=== PATIENT | male | born 1950 | race Caucasian/White ===

== ENCOUNTER 2019-08-02 10:38 | Inpatient (IN) | payer OTHER, MEDICAID ==
[~2019-08-02] VITALS: Ht 180.3 cm; Wt 94.4 kg
[2019-08-02 11:47] LABS: Basophils # (auto) 0.1 uL; Basophils % (auto) 0.7 % (0.0-2.0); Eosinophils # (auto) 0.2 uL; Eosinophils % (auto) 1.4 % (0.0-7.0); Hematocrit 46.2 % (41.0-53.0); Lymphocytes # (auto) 1.7 uL; Lymphocytes % (auto) 13.7 % (10.0-50.0); Mean Corpuscular Hgb Conc. 32.5 g/dL (32.0-36.0); Mean Corpuscular Volume 92.3 fL (80.0-100.0); Monocytes # (auto) 1.1 uL; Monocytes % (auto) 8.8 % (0.0-12.0); Neutrophils # (auto) 9.6 uL; Neutrophils % (auto) 75.4 % (37.0-80.0); Platelet Count (auto) 219 10^3/uL (140-450); Red Cell Distribution Width 14.4 % (11.8-14.3); White Blood Cell 12.7 10^3/uL (4.4-10.8)
[2019-08-02 12:15] LABS: Albumin 3.6 g/dL (3.4-5.0); Calcium 8.4 mg/dL (8.5-10.1); Potassium 4.3 mmol/L (3.5-5.1)
[2019-08-02 12:21] LABS: Bilirubin, Total 0.4 mg/dL (0.2-1.0); Total Protein 7.2 g/dL (6.4-8.2)
[2019-08-02] MEDS ORDERED: MORPHINE SULF INJ 2 MG/ML SYRINGE 1ML IV PRN ×2 (14:45)
[2019-08-02] MEDS ORDERED: ASPirin-EC 81 mg tab PO ONE (14:45)
[2019-08-02] MEDS ORDERED: NITROGLYCERIN 0.4 MG SL TAB SL PRN (14:45)
[2019-08-02] MEDS ORDERED: ONDANSETRON HCL 4 MG/2 ML VIAL IV PRN (14:45)
[2019-08-02] MEDS ORDERED: ACETAMINOPHEN 500 MG TAB PO PRN (14:45)
[2019-08-02 15:05] LABS: Urine Bacteria NONE SEEN /hpf (None Seen); Urine Blood Negative /uL (Negative); Urine Specific Gravity 1.011 (1.001-1.035); Urine WBC 1 /hpf (0 - 3)
[2019-08-02 15:09] LABS: Cholesterol 132 mg/dL (< 200); Triglycerides 177 mg/dL (< 150)
[2019-08-02 15:10] LABS: HDL Cholesterol 32 mg/dL (40-59); LDL Cholesterol 82 mg/dL (< 100)
[2019-08-02 15:20] LABS: Alcohol, Urine < 3.0 mg/dL (0-5); Amphetamine Screen, Urine NEGATIVE (NEGATIVE); Barbiturate Scree,Urine NEGATIVE (NEGATIVE); Benzodiazephine Screen, Urine POSITIVE (NEGATIVE); Cannabinoid Screen, Urine NEGATIVE (NEGATIVE); Cocaine Screen, Urine NEGATIVE (NEGATIVE)
[2019-08-02 15:27] LABS: Opiate Scree,Urine POSITIVE (NEGATIVE); Phencyclidine Screen, Urine NEGATIVE (NEGATIVE)
--- NOTE | 2019-08-02 17:53 | NUR ---
Telemetry admit from ER [facility] admitted to Telemetry unit after SBAR received. Patient oriented to Margie Doherty primary RN and NEFTALI Orozco, unit, room, bed, and unit policies regarding patient care and visiting hours. Patient now on continuous telemetry monitoring, tele box #29 and telemetry reading on arrival to unit is SR 80 bpm. Patient placed on bedside oxygen, weighed by bed scale and encouraged to call if they need something. All questions and concerns addressed, patient verbalized understanding. Instructed patient on POC, fall precautions and to call for assistance as needed. Patient verbalized understanding. Fall precautions in place with bed in lowest locked position with x2 side rails up and call light within reach. Will continue to monitor q1hr & PRN. No facial drooping noted. Extremity strength is equal with no weakness noted. Patient's speech is clear with no slurring noted.
[2019-08-02] MEDS ORDERED: ATOR20TA50 PO (18:58)
[2019-08-02] MEDS ORDERED: ACET300T2 PO (18:58)
--- NOTE | 2019-08-02 19:05 | NUR ---
Closing note patient resting in bed with even and unlabored respirations, no distress noted. Fall precautions in place with bed in lowest locked position, call light within reach.
--- NOTE | 2019-08-02 19:30 | NUR ---
Opening Shift Note Assumed care of patient, awake and alert. No S/S of distress/SOB or pain. Instructed on POC and to call for assist PRN. Bed in lowest locked position, call light within reach, side rails up x2, fall precautions in place. Will continue to monitor for changes Q1hr and PRN.
[2019-08-02] MEDS: ATORVASTATIN 20 MG TAB PO SCH (21:55)
[2019-08-02 22:00] VITALS: BP 137/74
[2019-08-03 05:00] VITALS: BP 118/72
[2019-08-03 06:34] LABS: Basophils # (auto) 0.1 uL; Basophils % (auto) 0.8 % (0.0-2.0); Eosinophils # (auto) 0.3 uL; Hematocrit 44.4 % (41.0-53.0); Hemoglobin 14.9 g/dL (13.5-17.5); Lymphocytes # (auto) 1.7 uL; Lymphocytes % (auto) 19.6 % (10.0-50.0); Mean Corpuscular Hemoglobin 30.5 pg (28.0-32.0); Mean Corpuscular Hgb Conc. 33.5 g/dL (32.0-36.0); Mean Corpuscular Volume 90.9 fL (80.0-100.0); Monocytes % (auto) 12.2 % (0.0-12.0); Neutrophils # (auto) 5.5 uL; Neutrophils % (auto) 64.4 % (37.0-80.0); Platelet Count (auto) 189 10^3/uL (140-450); Red Blood Cells 4.89 10^6/uL (4.5-5.90); Red Cell Distribution Width 14.4 % (11.8-14.3); White Blood Cell 8.5 10^3/uL (4.4-10.8)
[2019-08-03 06:51] LABS: BUN/Creatinine Ratio 13.4; Calcium 8.6 mg/dL (8.5-10.1); Potassium 4.1 mmol/L (3.5-5.1)
[2019-08-03 08:45] VITALS: BP 134/76
[2019-08-03] MEDS: ASPirin-EC 81 mg tab PO SCH (09:23)
[2019-08-03] MEDS: FAMOTIDINE 20 MG TAB PO SCH (09:23)
[2019-08-03 13:00] VITALS: BP 136/83
[2019-08-03] MEDS ORDERED: cefTRIAXone 1GM/50ML D5W 50 ML IV ONE (13:00)
[2019-08-03 17:00] VITALS: BP 114/69
[2019-08-03] MEDS: ATORVASTATIN 20 MG TAB PO SCH (21:57)
[2019-08-03 22:00] VITALS: BP 141/71
[2019-08-04 05:41] VITALS: BP 124/69
--- NOTE | 2019-08-04 07:30 | NUR ---
Opening Shift Note Assumed care of patient, awake and alert x2. No S/S of distress/SOB or pain. Instructed on POC and to call for assist PRN. Bed in lowest locked position, call light within reach, side rails up x2, fall precautions in place. Will continue to monitor for changes Q1hr and PRN.
[2019-08-04 08:53] LABS: Folate (Folic Acid) 17.77 ng/mL (5.38-24)
--- NOTE | 2019-08-04 08:53 | NUR ---
ROUNDING MD Haresh RASHID AT BEDSIDE. ALL QUESTIONS AND CONCERNS ADDRESSED AT THIS TIME.
[2019-08-04 09:00] VITALS: BP 120/77
[2019-08-04] MEDS: ASPirin-EC 81 mg tab PO SCH (09:04)
[2019-08-04] MEDS: cefTRIAXone 1GM/50ML D5W 50 ML IV SCH (09:04)
[2019-08-04] MEDS: FAMOTIDINE 20 MG TAB PO SCH (09:05)
[2019-08-04 13:00] VITALS: BP 139/89
--- NOTE | 2019-08-04 15:30 | NUR ---
NAT INSTRUCTOR AT BEDSIDE.
--- NOTE | 2019-08-04 15:31 | NUR ---
EEG- Electroencephalogram completed on 08/04/2019.
[2019-08-04 16:50] VITALS: BP 155/88
--- NOTE | 2019-08-04 19:10 | NUR ---
Opening Shift Note Assumed care of patient, awake and alert. No S/S of distress/SOB or pain. Instructed on POC and to call for assist PRN, will continue to monitor for changes Q1hr and PRN. Side rails up x2. Bed locked in lowest position. Call light within reach.
[2019-08-04] MEDS: HYDROcodone-ACET 5/325MG TAB PO PRN (19:52)
[2019-08-04] MEDS: ATORVASTATIN 20 MG TAB PO SCH (21:05)
[2019-08-04 22:00] VITALS: BP 125/87
--- NOTE | 2019-08-05 02:22 | NUR ---
Rounds Patient in bed asleep with no signs of distress/sob/pain. Will continue to monitor Q1HPRN.
[2019-08-05 05:20] VITALS: BP 153/77
--- NOTE | 2019-08-05 07:05 | NUR ---
Endorsed care to skinny LINDSAY.
--- NOTE | 2019-08-05 07:17 | NUR ---
Opening Shift Note Assumed care of patient, awake and alert x2. No S/S of distress/SOB or pain. Instructed on POC and to call for assist PRN. Family at bedside. Bed in lowest locked position, call light within reach, side rails up x2, fall precautions in place. Will continue to monitor for changes Q1hr and PRN.
[2019-08-05 09:00] VITALS: BP 138/76
[2019-08-05] MEDS: cefTRIAXone 1GM/50ML D5W 50 ML IV SCH (09:00)
[2019-08-05] MEDS: ASPirin-EC 81 mg tab PO SCH (09:01)
[2019-08-05] MEDS: FAMOTIDINE 20 MG TAB PO SCH (09:01)
--- NOTE | 2019-08-05 10:01 | NUR ---
ROUNDING MD Haresh RASHID AT BEDSIDE. ALL QUESTIONS AND CONCERNS ADDRESSED AT THIS TIME.
--- NOTE | 2019-08-05 10:23 | NUR ---
PAGED DIRECTOR PATIENT RE: ECHO RESULTS. ACCORDING TO DIRECTOR PATIENT MARIBELL THE RESULTS STILL NEED TO BE READ BY MD. DIAS
--- NOTE | 2019-08-05 10:32 | NUR ---
CALLED [facility] FOR EEG RESULTS. ACCORDING TO BICYCLE FITTER THE RESULTS STILL NEED TO BE READ BY DR NIETO.
--- NOTE | 2019-08-05 12:11 | NUR ---
Nutrition Assessment Notes please see attached link for complete assessment Est. Needs BW 95 [id number] kcal (23-25 kcal/kgBW), 95-104 gms pro (1.0-1.1 gms/kgBW). Will continue to monitor pertinent labs and reassess nutrient need prn Addendum: 08/05/19 at [address] Amended: Links added.
[2019-08-05 13:00] VITALS: BP 139/86
--- NOTE | 2019-08-05 15:46 | NUR ---
assessment Patient is a 69 year old male who is alert and oriented. Patients cognitive abilities are intact. Prior to admission patient lived home with his sig other and functioned independently. Patient informed me he is able to care for his own ADLs. Per patient he will return home to his prior living arrangements post discharge and family will transport him home. Patient was admitted for CVA and it has been ruled out. At this time patient has no post discharge needs at this time. Patient informed me he feels safe returning home on discharge. I informed patient he has a right to speak to a social work program coordinator regarding all care. I informed patient he has a right to participate in any and all discharge planning. Patient does not have a POA and advanced directive. I have offered patient information on POA and advanced directives. I informed the patient the advantages and benefits of having an Advanced Directive. Patient verbalized understanding and agreed to discharge plan. Addendum: 08/05/19 at 1552 by Denisha CHARLES Amended: Links added.
[2019-08-05 17:00] VITALS: BP 146/88
[2019-08-05] MEDS: HYDROcodone-ACET 5/325MG TAB PO PRN (17:54)
--- NOTE | 2019-08-05 20:20 | NUR ---
RECEIVE BED AWAKE ALERT STATES HE MAY BE DICHARGED TOMORROW
[2019-08-05] MEDS: ATORVASTATIN 20 MG TAB PO SCH (21:47)
[2019-08-05 22:00] VITALS: BP 127/82
[2019-08-06 05:00] VITALS: BP 127/80
[2019-08-06] MEDS: cefTRIAXone 1GM/50ML D5W 50 ML IV SCH (09:00)
[2019-08-06 09:29] VITALS: BP 135/86
[2019-08-06] MEDS: FAMOTIDINE 20 MG TAB PO SCH (09:50)
[2019-08-06] MEDS: ASPirin-EC 81 mg tab PO SCH (09:50)
[2019-08-06] MEDS: HYDROcodone-ACET 5/325MG TAB PO PRN (09:51)
--- NOTE | 2019-08-06 11:00 | NUR ---
Discharge instructions given as ordered. Encourage to follow up with PMD as instructed. All questions and concerns addressed. Patient verbalized understanding. Medication reconciliation form completed and copy given to patient. IV removed with catheter intact, pressure dressing applied, dominguez catheter removed. Telemetry unit returned to ICU. Patient taken to vehicle via wheelchair with all personal belongings, accompanied by staff and family member. No distress noted at time of departure.
== END 2019-08-06 10:58 | disposition home or self-care (01) | DRG 70 ==
LOC: ER 10:45 → TELE 10:46 → TELE-CENTR 18:00
PROVIDERS: ADMIT Nurse Practitioner Acute Care; ATTEND Family Medicine
DX: G93.41 Metabolic encephalopathy (principal); J96.01 Acute respiratory failure with hypoxia; N39.0 Urinary tract infection, site not specified; E66.9 Obesity, unspecified; Z68.29 Body mass index [BMI] 29.0-29.9, adult; D72.829 Elevated white blood cell count, unspecified; E78.00 Pure hypercholesterolemia, unspecified; E78.5 Hyperlipidemia, unspecified; F02.80 Dementia in other diseases classified elsewhere, unspecified severity, without behavioral disturbance, psychotic disturbance, mood disturbance, and anxiety; G30.9 Alzheimer's disease, unspecified; Z81.8 Family history of other mental and behavioral disorders; Z82.0 Family history of epilepsy and other diseases of the nervous system; Z82.3 Family history of stroke; Z79.82 Long term (current) use of aspirin; Z79.899 Other long term (current) drug therapy
CPT/HCPCS: 36415; 70450; 70551; 71046; 80048; 80053; 80061; 80307; 81001; 82607; 82746; 83605; 84443; 84484; 85025; 87040; 87086; 93005; 93306; 93886; 94761; 95819; G0378; J0696